=== PATIENT | male | born 1970 | race Caucasian/White ===

== ENCOUNTER → 2016-05-10 | Outpatient (CLI) | payer OTHER ==
[~2016-05-10] VITALS: Ht 172.7 cm; Wt 93.6 kg
[~2016-05-10] MED LIST: NEURONTIN300 MG/CAP PO
[2016-05-10 07:35] VITALS: BP 125/83; PULSE 64
[2016-05-10 08:30] VITALS: BP 129/88; PULSE 65
[2016-05-10 08:45] VITALS: BP 121/83; PULSE 69
[2016-05-10 09:00] VITALS: BP 122/87; PULSE 67
[2016-05-10 09:15] VITALS: BP 134/85; PULSE 68
== END ==
LOC: COL.RAD 07:00 → EDBD 07:00 → COL.RAD 07:14
DX: M54.16 Radiculopathy, lumbar region (principal); M79.672 Pain in left foot; F41.9 Anxiety disorder, unspecified; K58.9 Irritable bowel syndrome, unspecified; Z87.442 Personal history of urinary calculi; Z79.899 Other long term (current) drug therapy
CPT/HCPCS: Q9965